=== PATIENT | female | born 1940 | race Caucasian/White ===

== ENCOUNTER → 2016-06-21 | Outpatient (CLI) | payer MEDICARE, BC ==
[~2016-06-21] MED LIST: ALBUTEROL SULFAT3 ML IH; ALBUTEROL0.83 MG/ML; ASPIRIN 32325 MG/TAB PO; ASPIRIN E.C. 8181 MG PO; ATROVENT I0.2 MG/1 M IH; ATROVENT INHALE14 GM IH; BACTRIM DS 8001 TAB PO; BIAXIN 500MG T500 MG PO; BROVANA15 MCG/2 M IH; BUDESONIDE1 POW; BUFFERED ASPIR325 MG PO; CAPOTEN 25MG25 MG PO; CARAFATE1 GM PO; CARDIZEM 60MG T60 MG PO; CARDIZEM CD 18180 MG PO; CARDIZEM60 MG PO; CETIRIZINE10 MG PO; CHLORASEPTIC 1180 M3 MM; CIPRO 500MG TA500 MG PO; CLEOCIN HC150 MG/CAP PO; CLINDAMYCIN150 MG PO; COLACE 100100 MG/CAP PO; COZAAR 25MG25 MG/TAB PO; COZAAR 50MG50 MG/TAB PO; DILTIAZEM60 MG PO; DOXYCYCLINE 10100 MG PO; DULCOLAX S10 MG/SUPP RC; DUONEB 3 MG/3 ML3 ML IH; FLAGYL500 MG PO; FLONASE NASAL S16 GM NS; FLOVENT0.044 MG/A IH; FOLIC ACID 11 MG/TA1 PO; FORTAMET500 MG PO; GENTAMICIN; GENTAMICIN NS; GENTAMICIN180 MG/501 NS; GENTAMICIN180 MG/502 NS; GLUCOPHAGE XR500 M1 PO; GLUCOPHAGE500 MG/TAB PO; HEPARIN LOCK FLU5 M1 IV; IPRATROPIUM BROM3 M1 IH; KLONOPIN 0.5MG0.5 MG PO; LANTUS100 U/ML; LANTUS100 U/ML SC; LANTUS100 U/ML SQ; LEVAQUIN 5500 MG/TA1 PO; LEVAQUIN 750MG750 M1 PO; LEVEMIR100 U/ML SQ; LEVOTHYROXIN0.075 MG PO; LEVOTHYROXINE0.1 MG PO; LEVOXYL0.075 MG PO; MAG-OX 400400 MG/TAB PO; METFORMIN500 MG PO; MIRALAX PA17 GM/Dose PO; MUCINEX 60600 MG/TA1 PO; MUCINEX600 M1 PO; NATURAL IRON65 MG PO; NEXIUM 40MG40 MG PO; NIACIN TIME RE500 MG PO; NIACIN500 M3 PO; NIACINOL500 MG PO; NIASPAN 500MG500 MG PO; NITROSTAT0.4 MG/TAB SL; NOVLOG SQ; NS INT FLUSH 1010 ML IV; NYSTATIN OR100 MU/ML PO; PEPCID 20MG TAB20 MG PO; PLAVIX 75MG TAB75 MG PO; POTASS CHL20 MEQ/15 PO; PREDNISONE 10MG10 MG PO; PREDNISONE10 MG PO; PREDNISONE20 MG PO; PRILOSEC 20MG20 MG PO; PROTONIX 40MG T40 MG PO; PROVENTIL0.09 MG/A1 IH; PULMICORT0.25 MG/2 IH; PULMICORT0.5 MG/2 M IH; RT SPIRIVA18 MCG IH; SALINE NASAL SP45 ML NS; SENOKOT S 50 MG1 TAB PO; SINGULAIR 110 MG/TAB PO; SINGULAIR10 MG PO; SSKI1 GM/ML PO; SYNTHROID0.075 MG PO; SYNTHROID0.075 MG/T PO; SYNTHROID0.1 MG PO; THEOPHYLLINE E PO; THEOPHYLLINE S300 M1 PO; THEOPHYLLINE300 MG PO; ULTRAM 50MG TAB50 MG PO; VITAMIN B-1000 MCG/T PO; VITAMIN C500 MG PO; VITAMIN D 50,1.25 MG PO; VITAMIN D5000 IU PO; VITAMIN D50000 I1 PO; Viscous Lidocaine; ZOFRAN ODT4 MG PO; ZYRTEC 10MG10 MG PO; ZYRTEC10 MG PO; [UNRECOGNIZED DRUG - CODE] PO; [UNRECOGNIZED DRUG - OTHER]
== END ==
LOC: SUN.DIA 11:45
DX: E11.65 Type 2 diabetes mellitus with hyperglycemia (principal); Z79.84 Long term (current) use of oral hypoglycemic drugs; Z68.22 Body mass index [BMI] 22.0-22.9, adult; Z71.3 Dietary counseling and surveillance; E78.5 Hyperlipidemia, unspecified; I10 Essential (primary) hypertension

== ENCOUNTER → 2016-07-22 | Outpatient (CLI) | payer MEDICARE, BC | LOC: COL.RAD 07-21 08:45 | DX: Z53.9 Procedure and treatment not carried out, unspecified reason (principal) ==

== ENCOUNTER → 2016-07-26 | Outpatient (CLI) | payer MEDICARE, BC | LOC: COL.RAD 08:55 | DX: R10.84 Generalized abdominal pain (principal); R11.0 Nausea; R06.02 Shortness of breath | CPT/HCPCS: A9541 ==

== ENCOUNTER 2016-08-23 07:50 | Day surgery (SDC) | payer MEDICARE, BC ==
[2009-05-26 03:04] VITALS: BP 149/73
[~2016-08-23] VITALS: Ht 165.1 cm; Wt 64.5 kg
[2016-08-23] MEDS ORDERED: ZYRTEC 10MG10 MG PO (08:20)
[2016-08-23] MEDS ORDERED: LEVEMIR100 U/ML SQ (08:21)
[2016-08-23] MEDS ORDERED: GLUCOPHAGE500 MG/TAB PO (08:24)
[2016-08-23] MEDS ORDERED: SYNTHROID0.075 MG/T PO (08:25)
[2016-08-23] MEDS ORDERED: MIRALAX PA17 GM/Dose PO (08:28)
[2016-08-23 08:38] VITALS: BP 136/61; PULSE 86; TEMP 98
[2016-08-23 09:10] VITALS: BP 129/58; PULSE 81; TEMP 98.5
[2016-08-23 09:25] VITALS: BP 122/64; PULSE 82
[2016-08-23 09:40] VITALS: BP 140/58; PULSE 81
[2016-08-23 09:55] VITALS: BP 135/62; PULSE 76
== END 2016-08-23 10:14 | disposition home or self-care (01) ==
LOC: SDCO 07:50
DX: K31.819 Angiodysplasia of stomach and duodenum without bleeding (principal); K29.30 Chronic superficial gastritis without bleeding
CPT/HCPCS: OP; J2704; J7030

== ENCOUNTER → 2016-10-18 | Outpatient (CLI) | payer MEDICARE, BC | LOC: SUN.DIA | DX: E11.65 Type 2 diabetes mellitus with hyperglycemia (principal); Z68.23 Body mass index [BMI] 23.0-23.9, adult; Z71.3 Dietary counseling and surveillance; E78.5 Hyperlipidemia, unspecified; I10 Essential (primary) hypertension; Z87.891 Personal history of nicotine dependence; E03.9 Hypothyroidism, unspecified; J44.9 Chronic obstructive pulmonary disease, unspecified; K21.9 Gastro-esophageal reflux disease without esophagitis; M81.0 Age-related osteoporosis without current pathological fracture ==

== ENCOUNTER → 2017-01-18 | Outpatient (CLI) | payer MEDICARE, BC, OTHER | LOC: SUN.DIA 11:41 | DX: E11.9 Type 2 diabetes mellitus without complications (principal); E78.5 Hyperlipidemia, unspecified; I10 Essential (primary) hypertension; Z68.23 Body mass index [BMI] 23.0-23.9, adult; Z71.3 Dietary counseling and surveillance; Z87.891 Personal history of nicotine dependence | CPT/HCPCS: G0108 ==

== ENCOUNTER → 2017-01-24 | Outpatient (CLI) | payer MEDICARE, BC, OTHER | LOC: SUN.DIA 12:49 | DX: E11.9 Type 2 diabetes mellitus without complications (principal); Z71.3 Dietary counseling and surveillance ==

== ENCOUNTER → 2017-03-22 | Outpatient (CLI) | payer MEDICARE, BC, OTHER | LOC: SUN.DIA 10:59 | DX: E11.9 Type 2 diabetes mellitus without complications (principal); E78.5 Hyperlipidemia, unspecified; I10 Essential (primary) hypertension; Z68.23 Body mass index [BMI] 23.0-23.9, adult; Z71.3 Dietary counseling and surveillance; Z87.891 Personal history of nicotine dependence | CPT/HCPCS: G0108 ==

== ENCOUNTER → 2017-07-21 | Outpatient (CLI) | payer MEDICARE, BC | LOC: COL.VAS 12:29 | DX: I05.8 Other rheumatic mitral valve diseases (principal) ==

== ENCOUNTER 2017-10-03 11:20 | Inpatient (IN) | payer MEDICARE, BC ==
[~2017-10-03] VITALS: Ht 165.1 cm; Wt 65.3 kg
[2017-10-03 11:47] VITALS: BP 104/69; PULSE 107; TEMP 99.1
[2017-10-03 13:03] LABS: BASO # 0.1 (0.0-0.2); BASO % 0.5 % (0.0-2.0); EOS % 0.2 % (0-4.0); GRAN # 16.8 (1.4-6.5); GRAN % 86.8 % (42.2-75.2); LYMPH # 1.1 (1.2-3.4); LYMPH % 5.5 % (20.0-51.0); MEAN CELL VOLUME 91 fl (80.0-100.0); MEAN CORPUSCULAR HGB CONC 33 g/dl (33.0-37.0); MONO # 1.2 (0.1-0.6); MONO % 6.2 % (1.7-9.3); PLATELET COUNT 390 K/mm3 (130-400); RED BLOOD COUNT 3.82 M/mm3 (4.10-5.30); REDCELL DISTRIBUTION WIDTH-CV 13.2 % (11.5-14.5)
[2017-10-03 13:04] LABS: HEMATOCRIT 34.6 % (37.0-47.0); HEMOGLOBIN 11.5 g/dl (12.5-16.0); MEAN CORPUSCULAR HEMOGLOBIN 30 pg (27.0-31.0)
[2017-10-03 13:15] LABS: ALBUMIN 3.8 gm/dL (3.5-5.0); BILIRUBIN,TOTAL 0.5 mg/dL (0.0-1.0); CALCIUM 9.2 mg/dL (8.4-10.2); CREATININE, serum 0.62 mg/dL (0.52-1.25); POTASSIUM 4.3 mmol/L (3.4-5.0); TOTAL PROTEIN 6.6 gm/dL (6.4-8.2)
[2017-10-03 16:10] VITALS: BP 139/46; PULSE 114; TEMP 99.3
[2017-10-03] MEDS ORDERED: GLUCOPHAGE500 MG/TAB PO (18:14)
[2017-10-03 19:52] VITALS: BP 131/55; PULSE 117; TEMP 98.5
[2017-10-03 23:46] VITALS: BP 144/52; PULSE 107; TEMP 98.2
[2017-10-04 03:54] VITALS: BP 138/58; PULSE 96; TEMP 97.8
[2017-10-04 06:07] LABS: MEAN CELL VOLUME 92 fl (80.0-100.0); MEAN CORPUSCULAR HGB CONC 33 g/dl (33.0-37.0); PLATELET COUNT 328 K/mm3 (130-400); RED BLOOD COUNT 3.55 M/mm3 (4.10-5.30); REDCELL DISTRIBUTION WIDTH-CV 13.2 % (11.5-14.5)
[2017-10-04 06:10] LABS: COLLECTION METHOD CLEAN CATCH
[2017-10-04 06:14] LABS: HEMATOCRIT 32.7 % (37.0-47.0); HEMOGLOBIN 10.9 g/dl (12.5-16.0); MEAN CORPUSCULAR HEMOGLOBIN 31 pg (27.0-31.0)
[2017-10-04 06:18] LABS: CREATININE, serum 0.48 mg/dL (0.52-1.25); MAGNESIUM 2.2 mg/dL (1.6-2.3); POTASSIUM 3.9 mmol/L (3.4-5.0)
[2017-10-04 06:22] LABS: AMORPHOUS CRYSTAL Present /uL; PH 7 (5-8); SQUAMOUS EPITHELIAL 0-2 /hpf; URINE APPEARANCE Clear; URINE BACTERIA None Seen /hpf; URINE BILIRUBIN Negative (NEGATIVE); URINE BLOOD 1+ (NEGATIVE); URINE COLOR Yellow; URINE GLUCOSE 3+ (NEGATIVE); URINE KETONE Trace (NEGATIVE); URINE LEUKOCYTE ESTERASE Trace (NEGATIVE); URINE NITRATE Negative (NEGATIVE); URINE PROTEIN(semi-quant) 1+ (NEGATIVE); URINE RBC None Seen /hpf; URINE UROBILINOGEN Negative (NEGATIVE)
[2017-10-04 07:48] LABS: BAND 1 % (0-10); LYMPHOCYTE 5 % (20.0-51.0); NEUTROPHILS 93 % (42.0-75.2); TOXIC GRANULATION PRESENT
[2017-10-04 07:49] LABS: PLATELET ESTIMATE NORMAL (NORMAL)
[2017-10-04 07:53] VITALS: BP 135/59; PULSE 93; TEMP 98.5
[2017-10-04 11:59] VITALS: BP 147/58; PULSE 89; TEMP 98.5
[2017-10-04 16:13] VITALS: BP 136/64; PULSE 110; TEMP 98.2
[2017-10-04 20:04] VITALS: BP 165/60; PULSE 124; TEMP 98.2
[2017-10-04 23:45] VITALS: BP 131/51; PULSE 119; TEMP 98
[2017-10-05 03:04] VITALS: BP 147/64; PULSE 110; TEMP 97.1
[2017-10-05 06:37] LABS: MEAN CELL VOLUME 92 fl (80.0-100.0); MEAN CORPUSCULAR HGB CONC 33 g/dl (33.0-37.0); MEAN PLATELET VOLUME 9.3 fl (7.4-10.4); PLATELET COUNT 359 K/mm3 (130-400); RED BLOOD COUNT 3.35 M/mm3 (4.10-5.30); REDCELL DISTRIBUTION WIDTH-CV 13.3 % (11.5-14.5)
[2017-10-05 06:38] LABS: HEMATOCRIT 30.9 % (37.0-47.0); HEMOGLOBIN 10.2 g/dl (12.5-16.0); MEAN CORPUSCULAR HEMOGLOBIN 30 pg (27.0-31.0)
[2017-10-05 06:48] LABS: CREATININE, serum 0.55 mg/dL (0.52-1.25); POTASSIUM 4.2 mmol/L (3.4-5.0)
[2017-10-05 07:31] LABS: BAND 9 % (0-10); LYMPHOCYTE 4 % (20.0-51.0); NEUTROPHILS 78 % (42.0-75.2); PLATELET ESTIMATE NORMAL (NORMAL)
[2017-10-05 08:45] VITALS: BP 175/66; PULSE 96; TEMP 97.9
[2017-10-05 12:15] VITALS: BP 150/51; PULSE 107; TEMP 98.4
[2017-10-05 16:06] VITALS: BP 152/69; PULSE 101; TEMP 98.5
[2017-10-05 20:35] VITALS: BP 145/54; PULSE 103; TEMP 97.9
[2017-10-06 00:27] VITALS: BP 113/49; PULSE 90; TEMP 98.1
[2017-10-06 04:14] VITALS: BP 135/57; PULSE 83; TEMP 98.2
[2017-10-06 06:29] LABS: BASO % 0.2 % (0.0-2.0); EOS # 0.1 (0.0-0.7); EOS % 0.9 % (0-4.0); GRAN # 10.6 (1.4-6.5); GRAN % 76.4 % (42.2-75.2); LYMPH # 1.7 (1.2-3.4); LYMPH % 12.4 % (20.0-51.0); MEAN CELL VOLUME 93 fl (80.0-100.0); MEAN CORPUSCULAR HGB CONC 32 g/dl (33.0-37.0); MEAN PLATELET VOLUME 8.9 fl (7.4-10.4); MONO # 1.2 (0.1-0.6); MONO % 8.7 % (1.7-9.3); PLATELET COUNT 400 K/mm3 (130-400); RED BLOOD COUNT 3.62 M/mm3 (4.10-5.30); REDCELL DISTRIBUTION WIDTH-CV 13.2 % (11.5-14.5)
[2017-10-06 06:45] LABS: ALBUMIN 3.4 gm/dL (3.5-5.0); BILIRUBIN,TOTAL 0.1 mg/dL (0.0-1.0); CALCIUM 9.1 mg/dL (8.4-10.2); CREATININE, serum 0.62 mg/dL (0.52-1.25); POTASSIUM 3.8 mmol/L (3.4-5.0); TOTAL PROTEIN 6.3 gm/dL (6.4-8.2)
[2017-10-06 06:53] LABS: HEMATOCRIT 33.7 % (37.0-47.0); HEMOGLOBIN 10.9 g/dl (12.5-16.0); MEAN CORPUSCULAR HEMOGLOBIN 30 pg (27.0-31.0)
[2017-10-06 07:27] VITALS: BP 144/56; PULSE 102; TEMP 98.3
[2017-10-06] MEDS ORDERED: ZYRTEC 10MG10 MG PO (09:26)
[2017-10-06] MEDS ORDERED: DOXYCYCLINE 10100 MG PO (09:26)
[2017-10-06] MEDS ORDERED: DEEP SEA 45 ML45 ML NS (09:27)
[2017-10-06] MEDS ORDERED: PREDNISONE10 MG PO (09:29)
[2017-10-06 09:55] VITALS: BP_SYST 6.03; PULSE 95
[2017-10-06] MEDS ORDERED: MONODOX100 PO (12:29)
[2017-10-06] MEDS ORDERED: INCRUSE EL62.5 MCG/A IH (14:02)
[2017-10-06] MEDS ORDERED: PROTONIX 40MG T40 MG PO (14:04)
[2017-10-06] MEDS ORDERED: LOVENOX 4040 MG/0.4 SQ (14:05)
[2017-10-06] MEDS ORDERED: PERFOROMIS20 MCG/2 M IH (14:11)
[2017-10-06] MEDS ORDERED: NOVLOG SQ (14:12)
[2017-10-06] MEDS ORDERED: VITAMIN D 50,1.25 MG PO (14:14)
[2017-10-06] MEDS ORDERED: IPRATROPIUM BROM3 M1 IH (14:16)
== END 2017-10-06 10:50 | DRG 192 ==
LOC: MEDICAL 11:20
PROVIDERS: Physician Assistant
DX: J44.1 Chronic obstructive pulmonary disease with (acute) exacerbation (principal); I10 Essential (primary) hypertension; I25.10 Atherosclerotic heart disease of native coronary artery without angina pectoris; E11.42 Type 2 diabetes mellitus with diabetic polyneuropathy; Z79.4 Long term (current) use of insulin; Z87.891 Personal history of nicotine dependence; R91.1 Solitary pulmonary nodule; K76.9 Liver disease, unspecified; J32.9 Chronic sinusitis, unspecified
CPT/HCPCS: OP; 99222; 99223-AI; 99232-AI; 99238; G0378; G0379; G8978-GP; G8979-GP; G8987-GO; G8988-GO; J1650; J1815; J1956; J2920; J3475; J7030; J7512; Q9967

== ENCOUNTER 2017-10-06 10:59 | Inpatient (IN) | payer MEDICARE, BC ==
[~2017-10-06] VITALS: Ht 167.6 cm; Wt 68.3 kg
[~2017-10-06 10:59] MED LIST changes: +DEEP SEA 45 ML45 ML NS
[2017-10-06] MEDS ORDERED: MONODOX100 PO (12:29)
[2017-10-06 13:46] VITALS: BP 155/64; PULSE 95; TEMP 97.9
[2017-10-06] MEDS ORDERED: INCRUSE EL62.5 MCG/A IH (14:02)
[2017-10-06] MEDS ORDERED: PROTONIX 40MG T40 MG PO (14:04)
[2017-10-06] MEDS ORDERED: LOVENOX 4040 MG/0.4 SQ (14:05)
[2017-10-06] MEDS ORDERED: PERFOROMIS20 MCG/2 M IH (14:11)
[2017-10-06] MEDS ORDERED: NOVLOG SQ (14:12)
[2017-10-06] MEDS ORDERED: VITAMIN D 50,1.25 MG PO (14:14)
[2017-10-06] MEDS ORDERED: IPRATROPIUM BROM3 M1 IH (14:16)
[2017-10-06 18:25] VITALS: BP 146/59; PULSE 92; TEMP 97.8
[2017-10-07 06:46] VITALS: BP 152/75; PULSE 96; TEMP 98.2
[2017-10-07 16:14] VITALS: BP 161/65; PULSE 104; TEMP 98.4
[2017-10-08 06:00] VITALS: BP 152/63; PULSE 97; TEMP 98.3
[2017-10-08 16:29] VITALS: BP 148/62; PULSE 103; TEMP 98
[2017-10-09 06:54] VITALS: BP 150/98; PULSE 93; TEMP 98.2
[2017-10-09 16:01] VITALS: BP 140/55; PULSE 70; TEMP 98
[2017-10-10 05:27] VITALS: BP 135/52; PULSE 90; TEMP 98.3
[2017-10-10 16:16] VITALS: BP 130/60; PULSE 99; TEMP 97.7
[2017-10-11 06:00] VITALS: BP 140/48; PULSE 93; TEMP 98.3
[2017-10-11 15:37] VITALS: BP 132/53; PULSE 90; TEMP 97.9
[2017-10-12 04:58] VITALS: BP 135/60; PULSE 84; TEMP 97.7
[2017-10-12 07:00] LABS: CALCIUM 9.3 mg/dL (8.4-10.2); CREATININE, serum 0.58 mg/dL (0.52-1.25); MAGNESIUM 1.9 mg/dL (1.6-2.3); POTASSIUM 4.1 mmol/L (3.4-5.0)
[2017-10-12 07:25] LABS: TSH w REFLEX 5.95 uIU/mL (0.465-4.680)
[2017-10-12 15:34] VITALS: BP 140/52; PULSE 85; TEMP 97.6
[2017-10-13 06:06] VITALS: BP 155/63; PULSE 94; TEMP 97.4
[2017-10-13 16:19] VITALS: BP 126/52; PULSE 95; TEMP 98
[2017-10-14 06:05] VITALS: BP 133/52; PULSE 88; TEMP 98.4
[2017-10-14] MEDS ORDERED: PREDNISONE20 MG PO (08:48)
[2017-10-14] MEDS ORDERED: PROAIR HFA0.09 MG/AC IH (08:48)
[2017-10-14] MEDS ORDERED: LEVOXYL0.088 MG PO (08:48)
== END 2017-10-14 13:00 | disposition home health service (06) | DRG 948 ==
PROVIDERS: Internal Medicine
DX: R53.81 Other malaise (principal); J44.1 Chronic obstructive pulmonary disease with (acute) exacerbation; I25.10 Atherosclerotic heart disease of native coronary artery without angina pectoris; I10 Essential (primary) hypertension; E11.42 Type 2 diabetes mellitus with diabetic polyneuropathy; F17.210 Nicotine dependence, cigarettes, uncomplicated; R13.19 Other dysphagia
CPT/HCPCS: 99222-AI; 99232-AI; 99239; J1650; J1815; J7512

== ENCOUNTER 2017-10-19 15:41 | Emergency (ER) | payer MEDICARE, BC ==
[2009-05-26 03:04] VITALS: BP 149/73
[~2017-10-19] VITALS: Ht 165.1 cm; Wt 68.2 kg
[~2017-10-19 15:41] MED LIST changes: +INCRUSE EL62.5 MCG/A IH; +LEVOXYL0.088 MG PO; +LOVENOX 4040 MG/0.4 SQ; +MONODOX100 PO; +PERFOROMIS20 MCG/2 M IH; +PROAIR HFA0.09 MG/AC IH
[2017-10-19 16:31] LABS: HEMOGLOBIN 11.5 g/dl (12.5-16.0); MEAN CELL VOLUME 93 fl (80.0-100.0); MEAN CORPUSCULAR HEMOGLOBIN 31 pg (27.0-31.0); MEAN CORPUSCULAR HGB CONC 33 g/dl (33.0-37.0); MEAN PLATELET VOLUME 8.7 fl (7.4-10.4); PLATELET COUNT 559 K/mm3 (130-400); RED BLOOD COUNT 3.77 M/mm3 (4.10-5.30); REDCELL DISTRIBUTION WIDTH-CV 14.1 % (11.5-14.5)
[2017-10-19 16:34] LABS: HEMATOCRIT 35.2 % (37.0-47.0)
[2017-10-19 16:38] VITALS: TEMP 97.2
[2017-10-19 16:40] LABS: ALBUMIN 4.3 gm/dL (3.5-5.0); BILIRUBIN,TOTAL 0.3 mg/dL (0.0-1.0); CALCIUM 9.9 mg/dL (8.4-10.2); CREATININE, serum 0.64 mg/dL (0.52-1.25); POTASSIUM 4.8 mmol/L (3.4-5.0); TOTAL PROTEIN 7.2 gm/dL (6.4-8.2)
[2017-10-19 17:06] LABS: BAND 24 % (0-10); BASOPHIL 1 % (0-2); LYMPHOCYTE 4 % (20.0-51.0); METAMYELOCYTE 3 % (0-0); NEUTROPHILS 67 % (42.0-75.2); PLATELET ESTIMATE INCREASED (NORMAL)
[2017-10-19] MEDS ORDERED: VALIUM 2MG T2 MG/TAB PO (17:14)
[2017-10-19 17:29] LABS: COLLECTION METHOD CLEAN CATCH
[2017-10-19 17:42] VITALS: BP 158/66; PULSE 98
[2017-10-19 17:44] LABS: MUCOUS Present /lpf; PH 5 (5-8); SQUAMOUS EPITHELIAL 0-2 /hpf; URINE APPEARANCE Clear; URINE BACTERIA None Seen /hpf; URINE BILIRUBIN Negative (NEGATIVE); URINE BLOOD Negative (NEGATIVE); URINE COLOR Yellow; URINE GLUCOSE Negative (NEGATIVE); URINE KETONE Negative (NEGATIVE); URINE LEUKOCYTE ESTERASE Negative (NEGATIVE); URINE NITRATE Negative (NEGATIVE); URINE PROTEIN(semi-quant) Negative (NEGATIVE); URINE UROBILINOGEN Negative (NEGATIVE)
[2017-10-19 18:07] LABS: ARTERIAL BLOOD GAS HCO3 22.1 meq/L (22-26); ARTERIAL BLOOD GAS PCO2 36.5 mmHg (35-45); ARTERIAL BLOOD GAS PO2 99.7 mmHg (80-100)
[2017-10-19 18:08] LABS: ARTERIAL BLD GAS O2 SATURATION 97.2 % (92-100); ARTERIAL BLD GAS TCO2 CT 23.2; ARTERIAL BLOOD GAS BASE EXCESS -2.3 (-2-2)
== END 2017-10-19 18:09 | disposition home or self-care (01) ==
LOC: COL.ER 15:41
PROVIDERS: Emergency Medicine
DX: R25.1 Tremor, unspecified (principal); J44.9 Chronic obstructive pulmonary disease, unspecified; Z87.09 Personal history of other diseases of the respiratory system; Z79.82 Long term (current) use of aspirin; Z79.02 Long term (current) use of antithrombotics/antiplatelets; Z79.4 Long term (current) use of insulin; Z79.51 Long term (current) use of inhaled steroids
CPT/HCPCS: J2060; J7030

== ENCOUNTER 2017-11-18 17:22 | Outpatient (CLI) | payer MEDICARE, BC ==
[2009-05-26 03:04] VITALS: BP 149/73
[~2017-11-18] VITALS: Ht 165.1 cm; Wt 95.5 kg
[~2017-11-18 17:22] MED LIST changes: +VALIUM 2MG T2 MG/TAB PO
[2017-11-18 17:43] LABS: HEMOGLOBIN 10.8 g/dl (12.5-16.0); MEAN CELL VOLUME 97 fl (80.0-100.0); MEAN CORPUSCULAR HEMOGLOBIN 30 pg (27.0-31.0); MEAN CORPUSCULAR HGB CONC 31 g/dl (33.0-37.0); PLATELET COUNT 469 K/mm3 (130-400); RED BLOOD COUNT 3.56 M/mm3 (4.10-5.30); REDCELL DISTRIBUTION WIDTH-CV 13.8 % (11.5-14.5)
[2017-11-18 17:44] LABS: HEMATOCRIT 34.6 % (37.0-47.0)
[2017-11-18 17:49] LABS: ARTERIAL BLD GAS O2 SATURATION 96.6 % (92-100); ARTERIAL BLD GAS TCO2 CT 25.4; ARTERIAL BLOOD GAS BASE EXCESS -0.9 (-2-2); ARTERIAL BLOOD GAS HCO3 24.1 meq/L (22-26); ARTERIAL BLOOD GAS PO2 92.1 mmHg (80-100); ARTERIAL BLOOD GAS pH 7.39 (7.35-7.45)
[2017-11-18 17:52] LABS: CALCIUM 9.4 mg/dL (8.4-10.2); CREATININE, serum 0.66 mg/dL (0.52-1.25); POTASSIUM 5.2 mmol/L (3.4-5.0)
[2017-11-18 18:12] LABS: COLLECTION METHOD CLEAN CATCH
[2017-11-18 18:24] VITALS: BP 140/57; PULSE 86; TEMP 98.2
[2017-11-18 18:27] LABS: MUCOUS Present /lpf; PH 5 (5-8); SQUAMOUS EPITHELIAL None Seen /hpf; URINE APPEARANCE Clear; URINE BACTERIA None Seen /hpf; URINE BILIRUBIN Negative (NEGATIVE); URINE BLOOD Negative (NEGATIVE); URINE COLOR Yellow; URINE GLUCOSE 3+ (NEGATIVE); URINE KETONE Trace (NEGATIVE); URINE LEUKOCYTE ESTERASE Negative (NEGATIVE); URINE NITRATE Negative (NEGATIVE); URINE PROTEIN(semi-quant) Negative (NEGATIVE); URINE RBC 0-2 /hpf; URINE UROBILINOGEN Negative (NEGATIVE); URINE WBC 0-2 /hpf
[2017-11-18] MEDS ORDERED: NOVLOG SQ (23:34)
== END 2017-11-18 18:32 | disposition other institution, planned readmission (95) ==
LOC: EUO 17:22
PROVIDERS: Internal Medicine
DX: J96.10 Chronic respiratory failure, unspecified whether with hypoxia or hypercapnia (principal); J44.9 Chronic obstructive pulmonary disease, unspecified; Z99.81 Dependence on supplemental oxygen

== ENCOUNTER 2017-11-18 18:25 | Inpatient (IN) | payer MEDICARE, BC ==
[~2017-11-18] VITALS: Ht 167.6 cm; Wt 69.7 kg
[2017-11-18 22:54] VITALS: BP 119/40; PULSE 87; TEMP 98.3
[2017-11-18] MEDS ORDERED: NOVLOG SQ (23:34)
[2017-11-19 05:19] VITALS: BP 144/72; PULSE 83; TEMP 98.1
[2017-11-19 08:09] LABS: HEMOGLOBIN 10.3 g/dl (12.5-16.0); MEAN CELL VOLUME 98 fl (80.0-100.0); MEAN CORPUSCULAR HEMOGLOBIN 30 pg (27.0-31.0); MEAN CORPUSCULAR HGB CONC 31 g/dl (33.0-37.0); RED BLOOD COUNT 3.39 M/mm3 (4.10-5.30)
[2017-11-19 08:15] LABS: HEMATOCRIT 33.2 % (37.0-47.0); PLATELET COUNT 361 K/mm3 (130-400)
[2017-11-19 08:22] LABS: ANION GAP 8 mmol/L (7-16); BLOOD UREA NITROGEN 12 mg/dL (7-17); CALCIUM 8.5 mg/dL (8.4-10.2); CARBON DIOXIDE 32 mmol/L (22-30); CHLORIDE 101 mmol/L (98-107); CREATININE, serum 0.57 mg/dL (0.52-1.25); GLUCOSE 93 mg/dL (74-106); POTASSIUM 4.3 mmol/L (3.4-5.0); SODIUM 141 mmol/L (137-145)
[2017-11-19 08:25] VITALS: BP 153/54; PULSE 95; TEMP 98.3
[2017-11-19 08:55] LABS: TROPONIN-I < 0.012 ng/mL (0.000-0.034)
[2017-11-19 09:33] LABS: BAND 7 % (0-10); EOSINOPHIL 1 % (0-4); LYMPHOCYTE 32 % (20.0-51.0); NEUTROPHILS 58 % (42.0-75.2)
[2017-11-19 09:36] LABS: PLATELET ESTIMATE NORMAL (NORMAL)
[2017-11-19 12:00] VITALS: BP 134/52; PULSE 100; TEMP 98.5
[2017-11-19 17:36] VITALS: BP 127/51; PULSE 105; TEMP 98.6
[2017-11-19 20:49] VITALS: BP 141/56; PULSE 52; TEMP 98.1
[2017-11-20] VITALS (7 sets, daily range): BP systolic 109–150; BP diastolic 43–66; PULSE 60–95; TEMP 98.1–98.6
[2017-11-20 07:00] LABS: BILIRUBIN,TOTAL 0.3 mg/dL (0.0-1.0); CALCIUM 8.8 mg/dL (8.4-10.2); CREATININE, serum 0.57 mg/dL (0.52-1.25); POTASSIUM 4.1 mmol/L (3.4-5.0); TOTAL PROTEIN 5.4 gm/dL (6.4-8.2)
[2017-11-21 04:54] VITALS: BP 135/53; PULSE 86; TEMP 98.1
[2017-11-21 07:43] VITALS: BP 130/44; PULSE 88; TEMP 97.7
[2017-11-21 11:17] VITALS: BP 114/41; PULSE 77; TEMP 98.1
[2017-11-21 16:02] VITALS: BP 128/47; PULSE 87; TEMP 97.9
[2017-11-21 19:32] VITALS: BP 131/42; PULSE 90; TEMP 98.2
[2017-11-22 00:20] VITALS: BP 102/48; PULSE 77; TEMP 98.1
[2017-11-22 04:26] VITALS: BP 117/51; PULSE 81; TEMP 98.5
[2017-11-22 08:02] LABS: HEMATOCRIT 34.4 % (37.0-47.0); HEMOGLOBIN 11.3 g/dl (12.5-16.0); MEAN CELL VOLUME 94 fl (80.0-100.0); MEAN CORPUSCULAR HEMOGLOBIN 31 pg (27.0-31.0); MEAN CORPUSCULAR HGB CONC 33 g/dl (33.0-37.0); PLATELET COUNT 362 K/mm3 (130-400); RED BLOOD COUNT 3.68 M/mm3 (4.10-5.30); REDCELL DISTRIBUTION WIDTH-CV 14.1 % (11.5-14.5)
[2017-11-22 08:04] VITALS: BP 125/43; PULSE 85; TEMP 98.1
[2017-11-22 08:13] LABS: CALCIUM 8.7 mg/dL (8.4-10.2); CREATININE, serum 0.56 mg/dL (0.52-1.25); POTASSIUM 4.1 mmol/L (3.4-5.0)
[2017-11-22 08:15] LABS: BAND 17 % (0-10); EOSINOPHIL 3 % (0-4); HYPOCHROMIA 1+; LYMPHOCYTE 27 % (20.0-51.0); NEUTROPHILS 50 % (42.0-75.2); PLATELET ESTIMATE NORMAL (NORMAL)
== END 2017-11-22 12:00 | disposition home or self-care (01) | DRG 101 ==
LOC: COL.ER 18:25 → JCC 20:26
PROVIDERS: Family Medicine; Nurse Practitioner; Psychiatry & Neurology Neurology
DX: R56.9 Unspecified convulsions (principal); R51 Headache; R07.9 Chest pain, unspecified; J44.9 Chronic obstructive pulmonary disease, unspecified; I10 Essential (primary) hypertension; R91.8 Other nonspecific abnormal finding of lung field; E11.42 Type 2 diabetes mellitus with diabetic polyneuropathy; M81.0 Age-related osteoporosis without current pathological fracture; E03.9 Hypothyroidism, unspecified; R13.10 Dysphagia, unspecified; I25.10 Atherosclerotic heart disease of native coronary artery without angina pectoris; M19.90 Unspecified osteoarthritis, unspecified site; I48.91 Unspecified atrial fibrillation; D64.9 Anemia, unspecified; I25.2 Old myocardial infarction; Z99.81 Dependence on supplemental oxygen; Z87.891 Personal history of nicotine dependence
CPT/HCPCS: 99222-AI; 99232-AI; 99239; A9585; G0378; J1650; J1815; J1953; J2060; J2405; J7030

== ENCOUNTER → 2018-02-24 | Outpatient (CLI) | payer MEDICARE, BC | LOC: COL.RAD 17:02 | DX: S09.90XA Unspecified injury of head, initial encounter (principal); W19.XXXA Unspecified fall, initial encounter ==

== ENCOUNTER 2018-05-31 14:45 | Outpatient (RCR) | payer MEDICARE, BC | END 2018-06-01 09:58 | disposition home or self-care (01) | LOC: MKS.ESL.PT 14:45 | DX: R29.898 Other symptoms and signs involving the musculoskeletal system (principal); R53.81 Other malaise | CPT/HCPCS: G8978-GP; G8979-GP ==

== ENCOUNTER 2019-03-16 15:56 | Inpatient (IN) | payer MEDICARE, BC ==
[~2019-03-16] VITALS: Ht 167.6 cm; Wt 69.0 kg
[~2019-03-16 15:56] MED LIST changes: +XANAX .25M0.25 MG/TA PO
[2019-03-16 16:43] LABS: BASO # 0.1 (0.0-0.2); BASO % 0.7 % (0.0-2.0); EOS # 0.6 (0.0-0.7); EOS % 6.8 % (0-4.0); GRAN # 5.9 (1.4-6.5); GRAN % 68.3 % (42.2-75.2); HEMATOCRIT 34.9 % (37.0-47.0); HEMOGLOBIN 11.9 g/dl (12.5-16.0); LYMPH # 1.3 (1.2-3.4); LYMPH % 14.6 % (20.0-51.0); MEAN CELL VOLUME 93 fl (80.0-100.0); MEAN CORPUSCULAR HEMOGLOBIN 32 pg (27.0-31.0); MEAN CORPUSCULAR HGB CONC 34 g/dl (33.0-37.0); MEAN PLATELET VOLUME 8.8 fl (7.4-10.4); MONO # 0.7 (0.1-0.6); MONO % 8.4 % (1.7-9.3); PLATELET COUNT 315 K/mm3 (130-400); RED BLOOD COUNT 3.76 M/mm3 (4.10-5.30); REDCELL DISTRIBUTION WIDTH-CV 12.6 % (11.5-14.5)
[2019-03-16 16:47] LABS: INR 0.9 (0.8-3.0); PROTHROMBIN TIME 10.1 SECONDS (9.7-12.8)
[2019-03-16 16:51] LABS: ALBUMIN 3.5 gm/dL (3.5-5.0); BILIRUBIN,TOTAL 0.3 mg/dL (0.0-1.0); CALCIUM 9.4 mg/dL (8.4-10.2); CREATININE, serum 0.45 (0.52-1.25); POTASSIUM 4.2 mmol/L (3.4-5.0); TOTAL PROTEIN 6.2 gm/dL (6.4-8.2)
[2019-03-16 18:01] VITALS: BP 137/55; PULSE 76; TEMP 97.6
--- NOTE | 2019-03-16 19:52 | NUR ---
Patient has done well since up from ER to room 346. Contacted hospitalist for oral pain medication and clarified scheduled Morphine. Hanson catheter placed, draining clear yellow urine. Patient in 3lbs of bucks traction. Pain medication administered per orders. Denies further needs at this time. Reported off to oyster culler.
[2019-03-16 21:00] VITALS: BP 150/65; PULSE 90; TEMP 98
[2019-03-17] VITALS (7 sets, daily range): BP systolic 111–160; BP diastolic 32–71; PULSE 74–88; TEMP 97.7–98.4
[2019-03-17 06:23] LABS: BASO % 0.3 % (0.0-2.0); EOS % 0.1 % (0-4.0); GRAN # 8.3 (1.4-6.5); GRAN % 86.7 % (42.2-75.2); HEMOGLOBIN 10.4 g/dl (12.5-16.0); LYMPH # 0.8 (1.2-3.4); LYMPH % 8.4 % (20.0-51.0); MEAN CELL VOLUME 95 fl (80.0-100.0); MEAN CORPUSCULAR HEMOGLOBIN 31 pg (27.0-31.0); MEAN CORPUSCULAR HGB CONC 33 g/dl (33.0-37.0); MEAN PLATELET VOLUME 9.2 fl (7.4-10.4); MONO # 0.4 (0.1-0.6); MONO % 3.8 % (1.7-9.3); PLATELET COUNT 275 K/mm3 (130-400); RED BLOOD COUNT 3.33 M/mm3 (4.10-5.30); REDCELL DISTRIBUTION WIDTH-CV 12.6 % (11.5-14.5)
[2019-03-17 06:28] LABS: CALCIUM 8.5 mg/dL (8.4-10.2); CREATININE, serum 0.49 (0.52-1.25); POTASSIUM 4.9 mmol/L (3.4-5.0)
[2019-03-17 06:32] LABS: HEMATOCRIT 31.5 % (37.0-47.0)
--- NOTE | 2019-03-17 08:00 | NUR ---
Patient in bed resting. Alert and oriented x 3. Shift assessment complete. Patient denies pain at this time. Hanson to dependent drainage with clear yellow urine present. Patient in bucks traction. Dr. Rincon, hospitalist, and Dr. Ramirez in to see patient. Denies further needs at this time.
[2019-03-17 09:50] LABS: ARTERIAL BLD GAS O2 SATURATION 97.2 % (92-100); ARTERIAL BLD GAS TCO2 CT 25.1; ARTERIAL BLOOD GAS BASE EXCESS -0.2 (-2-2); ARTERIAL BLOOD GAS HCO3 23.9 meq/L (22-26); ARTERIAL BLOOD GAS PCO2 37.2 mmHg (35-45); ARTERIAL BLOOD GAS PO2 89.5 mmHg (80-100); ARTERIAL BLOOD GAS pH 7.43 (7.35-7.45)
--- NOTE | 2019-03-17 15:03 | NUR ---
Plan Unknown, may go home but depends. SNF is a possibility also. SW met with patient about DC plan. Patient directed SW to speak with Denisha DTR or Karol . Patient shares that he resides with her DTR Karol. Denisha reports that the DPOA is shared between the siblings. Patient has interim home health services. Patient has 02 cont- 3Liters. SW will need to continue to follow for additonal information and plan.
--- NOTE | 2019-03-17 18:55 | NUR ---
Patient has done well throughout the day. Having increased pain this afternoon. Notified Dr. Yee for additional medication. Medications given per orders. Assisting patient for meals. Denies further needs at this time. Reported off to yeast tender.
--- NOTE | 2019-03-17 21:30 | NUR ---
Pt. laying in bed at this time. Pt. is A&OX3, assessment complete. INT to lt. forearm patent. Pt. needs assistance with eating supper. Helped pt. eat at this time. Lt. leg to murphy's traction. Pt. reports pain at a 3 when not moving. Hanson catheter to DD, clear yellow urine noted. Pt. denies further needs, call light within reach.
[2019-03-18] VITALS (13 sets, daily range): BP systolic 118–152; BP diastolic 46–76; PULSE 81–98; TEMP 97–98.5
[2019-03-18 06:27] LABS: BASO % 0.3 % (0.0-2.0); EOS % 0.2 % (0-4.0); GRAN # 10.3 (1.4-6.5); GRAN % 79.4 % (42.2-75.2); LYMPH # 1.3 (1.2-3.4); LYMPH % 10.1 % (20.0-51.0); MEAN CELL VOLUME 94 fl (80.0-100.0); MEAN CORPUSCULAR HGB CONC 33 g/dl (33.0-37.0); MEAN PLATELET VOLUME 9.2 fl (7.4-10.4); MONO # 1.2 (0.1-0.6); MONO % 9.2 % (1.7-9.3); PLATELET COUNT 268 K/mm3 (130-400); RED BLOOD COUNT 3.09 M/mm3 (4.10-5.30); REDCELL DISTRIBUTION WIDTH-CV 12.5 % (11.5-14.5)
[2019-03-18 06:29] LABS: HEMOGLOBIN 9.6 g/dl (12.5-16.0); MEAN CORPUSCULAR HEMOGLOBIN 31 pg (27.0-31.0)
[2019-03-18 06:36] LABS: CALCIUM 8.8 mg/dL (8.4-10.2); CREATININE, serum 0.58 (0.52-1.25); POTASSIUM 4.5 mmol/L (3.4-5.0)
--- NOTE | 2019-03-18 07:27 | NUR ---
REPORT RECEIVED FROM DUKE BARAJAS. PATIENT AWAKE, NPO, AWAITING SURGERY. CONSENT SIGNED. PATIENT IN TRACTION WITH 3 LB WEIGHT. CARE TAKEN OVER AT THIS TIME.
--- NOTE | 2019-03-18 10:35 | NUR ---
PATIENT HAS RETURNED FROM OR/PACU AT THIS TIME SHE IS SOMEWHAT CONFUSED AND DENIES PAIN OR DISCOMFORT REPEATEDLY. LEFT HIP HAS TWO SEPARATE DRESSINGS WITH SMALL AMOUNT OF DRAINAGE ON EACH. VS WNL. SHE IS ON HOME DOSE OF OXYGEN, 3L/MIN. WILL CONTINUE TO MONITOR.
--- NOTE | 2019-03-18 15:39 | NUR ---
REPORT GIVEN TO DUKE GILBERT. PATIENT CURRENTLY SLEEPING.
--- NOTE | 2019-03-18 15:43 | NUR ---
Plan: Possible SNF services? Patient lives at home with her daughter Karol as care [phone], and Patients EMR contact as well as patients other daughter Forrest. Patient Resides in [facility]. Assess: SW met with patient, and daughter Karol was at patients bedside. Patient gave permission for this SW to speak to her daughter, as she was drowsy and in the process of going to sleep. PAtients PCP is Dr. Almeida, and she does not have any follow up appointments. Patient gets her medications from [facility] with no complications. Patient had been independent in the past, however may need a walk aid due to recent surgery. Action: We discussed SNF with daughter and provided her with medicare.gov forms. We also discussed possible walk aids for Patient. No additional concerns identified. Patient was educated on community resources and supports.
--- NOTE | 2019-03-18 18:00 | NUR ---
Slept for several hours after pain med. States feels better. Small amount drainage on left hip dressings.
[2019-03-18 18:25] LABS: COLLECTION METHOD CLEAN CATCH
[2019-03-18 18:44] LABS: MUCOUS Present /lpf; PH 5 (5-8); SQUAMOUS EPITHELIAL None Seen /hpf; URINE APPEARANCE Clear; URINE BACTERIA None Seen /hpf; URINE BILIRUBIN Negative (NEGATIVE); URINE BLOOD 2+ (NEGATIVE); URINE COLOR Yellow; URINE GLUCOSE 1+ (NEGATIVE); URINE KETONE Negative (NEGATIVE); URINE LEUKOCYTE ESTERASE Negative (NEGATIVE); URINE NITRATE Negative (NEGATIVE); URINE PROTEIN(semi-quant) Negative (NEGATIVE); URINE RBC 20-50 /hpf; URINE UROBILINOGEN Negative (NEGATIVE)
--- NOTE | 2019-03-18 19:00 | NUR ---
REPORT RECEIVED FROM OFELIA, BEDSIDE ROUNDS COMPLETED AT THIS TIME. PT DENIES NEEDS. CALL LIGHT WITHIN REACH.
--- NOTE | 2019-03-18 21:45 | NUR ---
PT IS AWAKE, ALERT, OX4 BUT DOES SEEM TO HAVE SOME INTERMITTENT CONFUSION AT TIMES. PT REPORTS PAIN TO L HIP WITH MOVEMENT. PT GIVEN A PAIN PILL AT THIS TIME. IVF INFUSING TO L FA SITE WITHOUT ISSUES, WILL LOCK AFTER THIS BAG IS COMPLETE. PT IS TAKING PO WITHOUT PROBLEMS. CMS INTACT TO LLE. LS DIMINISHED THROUGHOUT. ENCOURAGED PT TO CDB AND USE OF IS. O2 ON AT 3L PER NC. PT DENIES SOB. MILLER CATH IN PLACE DRAINING CLEAR, VINCENT URINE. INCISION TO L HIP X2 WITH OCCLUSSIVE DRESSINGS IN PLACE WITH SMALL AMOUNT OF PINK DRAINAGE NOTED TO BOTH. ICE PACK REMOVED AT THIS TIME PER PT REQUEST. PT DENIES ANY OTHER NEEDS. CALL LIGHT WITHIN REACH.
[2019-03-19 00:44] VITALS: BP 141/56; PULSE 83; TEMP 98.1
[2019-03-19 04:40] VITALS: BP 144/46; PULSE 88; TEMP 97.5
[2019-03-19 06:36] LABS: BASO % 0.2 % (0.0-2.0); EOS # 0.1 (0.0-0.7); EOS % 0.8 % (0-4.0); GRAN # 6.6 (1.4-6.5); GRAN % 73.2 % (42.2-75.2); LYMPH # 1.2 (1.2-3.4); LYMPH % 13.3 % (20.0-51.0); MEAN CELL VOLUME 94 fl (80.0-100.0); MEAN CORPUSCULAR HGB CONC 33 g/dl (33.0-37.0); MEAN PLATELET VOLUME 9.1 fl (7.4-10.4); MONO # 1.1 (0.1-0.6); MONO % 11.7 % (1.7-9.3); PLATELET COUNT 220 K/mm3 (130-400); RED BLOOD COUNT 2.36 M/mm3 (4.10-5.30)
--- NOTE | 2019-03-19 06:39 | NUR ---
PT HAS RESTED SOME THROUGH THE NIGHT WITH OCC C/O OF INTERRUPTIONS BY NURSING STAFF. HAS REPORTED SOME INTERMITTENT PAIN TO THE L HIP, CONTROLLED WITH USE OF PO NORCO. IVF SL'D DURING THE NIGHT PT IS TOLERATING PO INTAKE WITHOUT ANY PROBLEMS. PT HAS SOME MINOR INTERMITTENT CONFUSION AT TIMES, EASILY REORIENTS. FREQUENT REPOSITIONING THROUGH THE NIGHT WITH PILLOWS PLACED FOR COMFORT. SCD'S AND TEDS ON BILAT. CALL LIGHT WITHIN REACH.
[2019-03-19 06:47] LABS: CALCIUM 8.2 mg/dL (8.4-10.2); CREATININE, serum 0.49 (0.52-1.25); POTASSIUM 4.2 mmol/L (3.4-5.0)
[2019-03-19 07:08] LABS: HEMOGLOBIN 7.4 g/dl (12.5-16.0); MEAN CORPUSCULAR HEMOGLOBIN 31 pg (27.0-31.0)
[2019-03-19 07:09] LABS: HEMATOCRIT 22.2 % (37.0-47.0)
[2019-03-19 08:26] VITALS: BP 145/46; PULSE 94; TEMP 97.6
--- NOTE | 2019-03-19 08:30 | NUR ---
Patient in bed resting. Alert and oriented x 3. Shift assessment complete. Patient states pain is tolerable this AM. Tedhose and SCDs to BLE. Edema noted to left lateral thigh. Gauze dressing to left thigh with drainage present. Assisted patient to order breakfast. Denies further needs at this time.
--- NOTE | 2019-03-19 10:35 | NUR ---
Patient sitting up in recliner, talking to herself. Attempted to reorient patient
--- NOTE | 2019-03-19 11:15 | NUR ---
First visit from the vision rehabilitation therapist. prayed with patient. No other needs right now.
[2019-03-19 11:36] VITALS: BP 134/41; PULSE 92; TEMP 98
--- NOTE | 2019-03-19 15:16 | NUR ---
HAKEEM presented the patient choice form to the patient. The patient's first choice is [facility] and second choice is [facility]. A copy was provided to the patient and the original was placed in the chart. HAKEEM contacted the patient's daughter, Karol and she was in agreeance. HAKEEM attempted to contact the patient's daughter Jaimee but could not leave a message. HAKEEM faxed referrals. SW awaiting response. HAKEEM will continue to follow.
[2019-03-19 16:00] VITALS: BP 147/48; PULSE 107; TEMP 98.2
--- NOTE | 2019-03-19 19:25 | NUR ---
Patient has done well throughout the day, Denies pain when sitting up in recliner. Family at bedside. Patient denies further needs at this time. Reported off to retail shift supervisor.
[2019-03-19 20:29] VITALS: BP 142/49; PULSE 104; TEMP 100.1
--- NOTE | 2019-03-19 23:27 | NUR ---
Lying back in recliner chair. Respirations even and unlabored. No signs or symptoms of discomfort noted.
[2019-03-20 00:11] VITALS: BP 149/59; PULSE 100; TEMP 100.6
[2019-03-20 03:35] VITALS: BP 146/57; PULSE 99; TEMP 99.8
--- NOTE | 2019-03-20 04:01 | NUR ---
Sitting up in chair with eyes closed. Respirations even and unlabored. Eyes open when name called out. Denies pain. Explains that she is comfortable in the chair to get rest and does not want in the bed. Patient denies further needs at this time.
--- NOTE | 2019-03-20 06:01 | NUR ---
Sitting up in chair, eyes open. Complains of pain in left hip. Dressing continues to have minimal drainage on gauze. Administered pain medication as directed. Patient denies further needs at this time.
[2019-03-20 06:23] LABS: MEAN CELL VOLUME 96 fl (80.0-100.0); MEAN CORPUSCULAR HGB CONC 33 g/dl (33.0-37.0); MEAN PLATELET VOLUME 9.4 fl (7.4-10.4); PLATELET COUNT 247 K/mm3 (130-400); REDCELL DISTRIBUTION WIDTH-CV 12.9 % (11.5-14.5)
[2019-03-20 06:33] LABS: CALCIUM 8.7 mg/dL (8.4-10.2); CREATININE, serum 0.51 (0.52-1.25); POTASSIUM 4.7 mmol/L (3.4-5.0)
[2019-03-20 06:41] LABS: HEMOGLOBIN 7.9 g/dl (12.5-16.0); MEAN CORPUSCULAR HEMOGLOBIN 32 pg (27.0-31.0)
--- NOTE | 2019-03-20 07:13 | NUR ---
Report provided to DUKE Gustafson.
[2019-03-20 07:15] VITALS: BP 136/48; PULSE 80; TEMP 97.9
--- NOTE | 2019-03-20 08:00 | NUR ---
SEE AM ASSESSMENT.
--- NOTE | 2019-03-20 08:27 | NUR ---
Ted from [facility] reports they [place] accept [place]. Cee from [facility] reports they can accept the [place]. SW will continue to follow.
[2019-03-20 08:34] LABS: BAND 3 % (0-10); LYMPHOCYTE 7 % (20.0-51.0); NEUTROPHILS 88 % (42.0-75.2); PLATELET ESTIMATE NORMAL (NORMAL)
[2019-03-20 08:35] LABS: HYPOCHROMIA 1+
[2019-03-20 11:00] VITALS: BP 126/40; PULSE 104; TEMP 98.4
[2019-03-20] MEDS ORDERED: NORCO 325 MG-51 TAB PO (13:57)
[2019-03-20] MEDS ORDERED: TYLENOL 325MG325 MG PO (13:58)
[2019-03-20] MEDS ORDERED: SENNA-S 50 MG-81 TAB PO (13:59)
[2019-03-20 15:05] VITALS: BP 126/40; PULSE 104; TEMP 98.4
--- NOTE | 2019-03-20 15:05 | NUR ---
REPORT CALLED TO DUKE LUCIANO AT [facility].
--- NOTE | 2019-03-20 15:07 | NUR ---
Initial visit; Patient thanked Flame Hardener for stopping in to introduce herself and to let patient know she is available to offer encouragement and prayer.
--- NOTE | 2019-03-20 15:43 | NUR ---
The patient is to discharge today, 03/20 to [facility] for a correction stay. HAKEEM presented the IM form to the patient, patient understood and signed the form. A copy was provided to the patient and original was placed in the chart. The patient is to be tranported at 1500. HAKEEM informed the patient, patient's nurse and patient's family, all were in agreeance. HAKEEM faxed discharge orders to Cee at [facility]. There are no additional needs at this time.
== END 2019-03-20 13:20 | DRG 481 ==
LOC: COL.ER 15:56 → SURG 16:20
PROVIDERS: Emergency Medicine; Internal Medicine Critical Care Medicine; Nurse Practitioner Family; Orthopaedic Surgery; ADMIT Student in an Organized Health Care Education/Training Program
PROC: 0QS736Z Reposition Left Upper Femur with Intramedullary Internal Fixation Device, Percutaneous Approach (ICD-10-PCS; principal; 2019-03-18 08:00)
DX: S72.142A Displaced intertrochanteric fracture of left femur, initial encounter for closed fracture (principal); C34.91 Malignant neoplasm of unspecified part of right bronchus or lung; I48.20 Chronic atrial fibrillation, unspecified; J96.11 Chronic respiratory failure with hypoxia; J44.9 Chronic obstructive pulmonary disease, unspecified; I10 Essential (primary) hypertension; I25.10 Atherosclerotic heart disease of native coronary artery without angina pectoris; E03.9 Hypothyroidism, unspecified; K21.9 Gastro-esophageal reflux disease without esophagitis; I25.2 Old myocardial infarction; W01.0XXA Fall on same level from slipping, tripping and stumbling without subsequent striking against object, initial encounter; Y93.89 Activity, other specified; D64.9 Anemia, unspecified; E11.42 Type 2 diabetes mellitus with diabetic polyneuropathy; M81.0 Age-related osteoporosis without current pathological fracture; M19.90 Unspecified osteoarthritis, unspecified site; J38.00 Paralysis of vocal cords and larynx, unspecified; D72.829 Elevated white blood cell count, unspecified; Z79.890 Hormone replacement therapy; Z79.4 Long term (current) use of insulin; Z79.82 Long term (current) use of aspirin; Z79.02 Long term (current) use of antithrombotics/antiplatelets; Z99.81 Dependence on supplemental oxygen; Z87.891 Personal history of nicotine dependence; Z90.710 Acquired absence of both cervix and uterus; Z88.0 Allergy status to penicillin
CPT/HCPCS: 99222; 99222-AI; 99223-AI; 99232-AI; 99233-AI; 99239; A9284; C1713; C1769; J0690; J1650; J1815; J2270; J2405; J2765; J2795; J3010; J7030; J7512

== ENCOUNTER 2019-03-26 20:21 | Inpatient (IN) | payer MEDICARE, BC ==
[~2019-03-26] VITALS: Ht 167.6 cm; Wt 72.8 kg
[~2019-03-26 20:21] MED LIST changes: +NORCO 325 MG-51 TAB PO; +SENNA-S 50 MG-81 TAB PO; +TYLENOL 325MG325 MG PO
[2019-03-26 21:36] LABS: MEAN CELL VOLUME 99 fl (80.0-100.0); MEAN CORPUSCULAR HGB CONC 32 g/dl (33.0-37.0); MEAN PLATELET VOLUME 8.7 fl (7.4-10.4); PLATELET COUNT 442 K/mm3 (130-400); RED BLOOD COUNT 2.27 M/mm3 (4.10-5.30); REDCELL DISTRIBUTION WIDTH-CV 15.2 % (11.5-14.5)
[2019-03-26 21:37] LABS: INR 0.9 (0.8-3.0); PROTHROMBIN TIME 10.5 SECONDS (9.7-12.8)
[2019-03-26 21:40] LABS: ALANINE AMINOTRANSFERASE 18 U/L (9-52); ALBUMIN 3.2 gm/dL (3.5-5.0); ALKALINE PHOSPHATASE 109 U/L (50-136); ANION GAP 8 mmol/L (7-16); AST,SGOT 31 U/L (15-37); BILIRUBIN,TOTAL 0.6 mg/dL (0.0-1.0); BLOOD UREA NITROGEN 15 mg/dL (7-17); CALCIUM 8.4 mg/dL (8.4-10.2); CARBON DIOXIDE 29 mmol/L (22-30); CHLORIDE 92 mmol/L (98-107); CREATININE, serum 0.58 (0.52-1.25); GLUCOSE 139 mg/dL (74-106); POTASSIUM 4.4 mmol/L (3.4-5.0); SODIUM 129 mmol/L (137-145); TOTAL PROTEIN 5.8 gm/dL (6.4-8.2)
[2019-03-26 21:43] LABS: HEMATOCRIT 22.4 % (37.0-47.0); HEMOGLOBIN 7.2 g/dl (12.5-16.0); MEAN CORPUSCULAR HEMOGLOBIN 32 pg (27.0-31.0)
[2019-03-26 21:51] LABS: TROPONIN-I < 0.012 ng/mL (0.000-0.035)
[2019-03-26 22:02] LABS: COLLECTION METHOD CATHETER
[2019-03-26 22:09] LABS: MUCOUS Present /lpf; PH 5 (5-8); SQUAMOUS EPITHELIAL None Seen /hpf; URINE APPEARANCE Clear; URINE BACTERIA Rare /hpf; URINE BILIRUBIN Negative (NEGATIVE); URINE BLOOD 1+ (NEGATIVE); URINE COLOR Yellow; URINE GLUCOSE Negative (NEGATIVE); URINE KETONE Negative (NEGATIVE); URINE LEUKOCYTE ESTERASE Negative (NEGATIVE); URINE NITRATE Negative (NEGATIVE); URINE PROTEIN(semi-quant) Negative (NEGATIVE); URINE RBC 0-2 /hpf; URINE UROBILINOGEN Negative (NEGATIVE)
[2019-03-26 22:15] LABS: BAND 7 % (0-10); EOSINOPHIL 3 % (0-4); LYMPHOCYTE 16 % (20.0-51.0); METAMYELOCYTE 1 % (0-0); MYELOCYTE 4 % (0-0); NEUTROPHILS 67 % (42.0-75.2)
[2019-03-26 22:23] LABS: PLATELET ESTIMATE INCREASED (NORMAL)
[2019-03-27] VITALS (17 sets, daily range): BP systolic 105–147; BP diastolic 44–79; PULSE 79–108; TEMP 97.4–99.1
[2019-03-27 03:57] LABS: MEAN CELL VOLUME 101 fl (80.0-100.0); MEAN CORPUSCULAR HGB CONC 32 g/dl (33.0-37.0); MEAN PLATELET VOLUME 8.6 fl (7.4-10.4); PLATELET COUNT 390 K/mm3 (130-400); RED BLOOD COUNT 2.11 M/mm3 (4.10-5.30); REDCELL DISTRIBUTION WIDTH-CV 15.1 % (11.5-14.5); RETIC # 0.15 M/mm3 (0.02-0.16); RETIC % 7.1 % (0.5-3.52)
[2019-03-27 03:58] LABS: HEMATOCRIT 21.2 % (37.0-47.0); HEMOGLOBIN 6.8 g/dl (12.5-16.0); MEAN CORPUSCULAR HEMOGLOBIN 32 pg (27.0-31.0)
[2019-03-27 04:05] LABS: CREATININE, serum 0.52 (0.52-1.25)
[2019-03-27 04:06] LABS: CHOLESTEROL RISK RATIO 4.4
[2019-03-27 05:02] LABS: POTASSIUM 4.2 mmol/L (3.4-5.0)
[2019-03-27 08:29] LABS: PATHOLOGY DIFF REVIEW OK
[2019-03-27 16:43] LABS: FOLATE (FOLIC ACID) 11.4 ng/mL (7.0-31.4)
[2019-03-28 00:07] VITALS: BP 125/84; PULSE 101; TEMP 99.2
[2019-03-28 03:39] VITALS: BP 139/81; PULSE 99; TEMP 98.6
[2019-03-28 06:58] LABS: MEAN CORPUSCULAR HGB CONC 34 g/dl (33.0-37.0); MEAN PLATELET VOLUME 8.7 fl (7.4-10.4); PLATELET COUNT 461 K/mm3 (130-400); RED BLOOD COUNT 3.41 M/mm3 (4.10-5.30); REDCELL DISTRIBUTION WIDTH-CV 15.5 % (11.5-14.5)
[2019-03-28 06:59] LABS: MEAN CELL VOLUME 94 fl (80.0-100.0); MEAN CORPUSCULAR HEMOGLOBIN 32 pg (27.0-31.0)
[2019-03-28 07:00] LABS: HEMOGLOBIN 10.8 g/dl (12.5-16.0)
[2019-03-28 07:27] VITALS: BP 145/62; PULSE 97; TEMP 98.6
[2019-03-28 07:41] LABS: BAND 20 % (0-10); EOSINOPHIL 1 % (0-4); LYMPHOCYTE 9 % (20.0-51.0); METAMYELOCYTE 5 % (0-0); MYELOCYTE 1 % (0-0); NEUTROPHILS 55 % (42.0-75.2); PLATELET ESTIMATE NORMAL (NORMAL)
[2019-03-28 08:45] LABS: CALCIUM 8.5 mg/dL (8.4-10.2); CREATININE, serum 0.45 (0.52-1.25); POTASSIUM 3.6 mmol/L (3.4-5.0)
[2019-03-28] MEDS ORDERED: NORCO 325 MG-51 TAB PO ×2 (10:40→16:08)
[2019-03-28] MEDS ORDERED: MIRALAX510G PO (10:41)
[2019-03-28 12:06] VITALS: BP 146/69; PULSE 112; TEMP 98.3
== END 2019-03-28 17:51 | disposition home health service (06) | DRG 812 ==
LOC: COL.ER 20:21 → SURG 22:50
PROVIDERS: Emergency Medicine; Nurse Practitioner Family; Student in an Organized Health Care Education/Training Program; ADMIT Student in an Organized Health Care Education/Training Program
DX: D64.9 Anemia, unspecified (principal); I48.20 Chronic atrial fibrillation, unspecified; E87.1 Hypo-osmolality and hyponatremia; E87.3 Alkalosis; I82.459 Acute embolism and thrombosis of unspecified peroneal vein; C34.91 Malignant neoplasm of unspecified part of right bronchus or lung; R41.82 Altered mental status, unspecified; T50.995A Adverse effect of other drugs, medicaments and biological substances, initial encounter; J44.9 Chronic obstructive pulmonary disease, unspecified; D72.825 Bandemia; E11.42 Type 2 diabetes mellitus with diabetic polyneuropathy; I10 Essential (primary) hypertension; R33.9 Retention of urine, unspecified; I25.10 Atherosclerotic heart disease of native coronary artery without angina pectoris; Z79.01 Long term (current) use of anticoagulants; Z79.82 Long term (current) use of aspirin; Z90.710 Acquired absence of both cervix and uterus; Z87.891 Personal history of nicotine dependence; Z88.0 Allergy status to penicillin; Z88.1 Allergy status to other antibiotic agents
CPT/HCPCS: 99233-AI; 99239; A4216; C9113; J0696; J1650; J1815; J1940; J7030; P9016

== ENCOUNTER 2019-04-11 11:33 | Emergency (ER) | payer MEDICARE, BC ==
[2009-05-26 03:04] VITALS: BP 149/73
[~2019-04-11] VITALS: Ht 165.1 cm; Wt 65.5 kg
[~2019-04-11 11:33] MED LIST changes: +MIRALAX510G PO
[2019-04-11 12:07] VITALS: TEMP 98.5
[2019-04-11] MEDS ORDERED: ZOFRAN ODT4 MG PO (14:31)
[2019-04-11] MEDS ORDERED: PULMICORT0.25 MG/2 IH (16:06)
[2019-04-11 17:40] VITALS: BP 147/42; PULSE 95
== END 2019-04-11 17:40 | disposition home or self-care (01) ==
LOC: COL.ER 11:33
DX: R11.2 Nausea with vomiting, unspecified (principal); R53.1 Weakness; I10 Essential (primary) hypertension; E11.9 Type 2 diabetes mellitus without complications; I25.10 Atherosclerotic heart disease of native coronary artery without angina pectoris; I48.91 Unspecified atrial fibrillation; Z85.118 Personal history of other malignant neoplasm of bronchus and lung; Z79.4 Long term (current) use of insulin; Z79.02 Long term (current) use of antithrombotics/antiplatelets; Z79.82 Long term (current) use of aspirin

== ENCOUNTER 2019-12-22 08:56 | Inpatient (IN) | payer MEDICARE, BC ==
[~2019-12-22] VITALS: Ht 165.1 cm; Wt 61.1 kg
[~2019-12-22 08:56] MED LIST changes: +SYNTHROID0.088 MG/T PO; +XARELTO20 MG PO
[2019-12-22 15:30] LABS: BASO # 0.1 (0.0-0.2); BASO % 0.4 % (0.0-2.0); EOS # 0.1 (0.0-0.7); EOS % 0.4 % (0-4.0); GRAN # 13.6 (1.4-6.5); GRAN % 87.4 % (42.2-75.2); HEMATOCRIT 37.2 % (37.0-47.0); HEMOGLOBIN 11.8 g/dl (12.5-16.0); LYMPH # 0.6 (1.2-3.4); LYMPH % 3.9 % (20.0-51.0); MEAN CELL VOLUME 92 fl (80.0-100.0); MEAN CORPUSCULAR HEMOGLOBIN 29 pg (27.0-31.0); MEAN CORPUSCULAR HGB CONC 32 g/dl (33.0-37.0); MEAN PLATELET VOLUME 8.3 fl (7.4-10.4); MONO # 1.1 (0.1-0.6); MONO % 7.2 % (1.7-9.3); PLATELET COUNT 455 K/mm3 (130-400); RED BLOOD COUNT 4.06 M/mm3 (4.10-5.30); REDCELL DISTRIBUTION WIDTH-CV 12.5 % (11.5-14.5)
[2019-12-22 15:43] LABS: ALBUMIN 3.7 gm/dL (3.5-5.0); BILIRUBIN,TOTAL 0.5 mg/dL (0.0-1.0); CALCIUM 9.2 mg/dL (8.4-10.2); CREATININE, serum 0.57 (0.52-1.25); POTASSIUM 4.3 mmol/L (3.4-5.0); TOTAL PROTEIN 7.3 gm/dL (6.4-8.2)
[2019-12-22 16:01] LABS: C-REACTIVE PROTEIN 24.5 mg/dL (0.0-0.9)
--- NOTE | 2019-12-22 20:00 | NUR ---
To room 326 from ED-ambulates with two assist. Admission assessment complete. Denies nausea/shortness of breath. States she does have abdominal pressure-rating it 2/10 on pain scale-denies need for intervention. Fentanyl patches x3-total of 150mcg-to back on admission. Oriented to room and policy. A&O-periods of confused conversation. Admission orders initiated. Spoke with daughters-Denisha and Karol-to complete med rec and history. SCDs applied. High fall risk-yellow gown/socks on as well as signage posted/bracelet. Respiratory here to do PRN Neb. Call light in reach/bed alarm on. Will monitor.
[2019-12-22 20:19] VITALS: BP 143/44; PULSE 81; TEMP 98.9
[2019-12-22 20:22] VITALS: BP 143/44; PULSE 81; TEMP 98.9
[2019-12-22] MEDS ORDERED: ZOLOFT 50MG50 MG PO (20:23)
[2019-12-22] MEDS ORDERED: PROTONIX 40MG T40 MG PO (20:23)
[2019-12-22] MEDS ORDERED: ROXICODONE15 MG PO (20:24)
[2019-12-22] MEDS ORDERED: FENTANYL 50MCG TD (20:26)
[2019-12-22] MEDS ORDERED: LOVENOX 6060 MG/0.6 SQ (20:27)
[2019-12-22] MEDS ORDERED: MAG-OX 400400 MG/TAB PO (20:27)
[2019-12-22 23:42] VITALS: BP 137/55; PULSE 83; TEMP 98.6
--- NOTE | 2019-12-23 | NUR ---
Bedside glucose 174. VS stable. States she has no urge to have a bowel movement or void. States she voided in the ED every time she sat on commode. Will bladder scan if no void in next few hours.
[2019-12-23 03:54] VITALS: BP 160/56; PULSE 81; TEMP 97.5
--- NOTE | 2019-12-23 04:35 | NUR ---
Assisted up to bathroom at this time. Attempt made to collect needed UA however hat was missed. Denies shortness of breath/pain/nausea. IV to left wrist with NS@100ml/hr infusing without difficulty. O2@4L/NC. Has remained NPO except ice chips. VS have remained stable. Denies needs. Call light in reach/bed alarm on. Will monitor.
--- NOTE | 2019-12-23 06:40 | NUR ---
appears to be dozing, bedside shift report received from DUKE Raymond
[2019-12-23 06:48] LABS: BASO % 0.2 % (0.0-2.0); EOS % 0.1 % (0-4.0); GRAN # 11.7 (1.4-6.5); GRAN % 89.1 % (42.2-75.2); HEMOGLOBIN 10.8 g/dl (12.5-16.0); LYMPH # 0.6 (1.2-3.4); LYMPH % 4.3 % (20.0-51.0); MEAN CELL VOLUME 92 fl (80.0-100.0); MEAN CORPUSCULAR HEMOGLOBIN 29 pg (27.0-31.0); MEAN CORPUSCULAR HGB CONC 31 g/dl (33.0-37.0); MEAN PLATELET VOLUME 8.8 fl (7.4-10.4); MONO # 0.7 (0.1-0.6); MONO % 5.2 % (1.7-9.3); PLATELET COUNT 480 K/mm3 (130-400); RED BLOOD COUNT 3.75 M/mm3 (4.10-5.30); REDCELL DISTRIBUTION WIDTH-CV 12.4 % (11.5-14.5)
[2019-12-23 07:03] LABS: ALBUMIN 3.3 gm/dL (3.5-5.0); BILIRUBIN,TOTAL 0.4 mg/dL (0.0-1.0); CALCIUM 8.3 mg/dL (8.4-10.2); CREATININE, serum 0.5 (0.52-1.25); POTASSIUM 4.2 mmol/L (3.4-5.0); TOTAL PROTEIN 6.5 gm/dL (6.4-8.2)
[2019-12-23 07:16] LABS: HEMATOCRIT 34.6 % (37.0-47.0)
--- NOTE | 2019-12-23 08:00 | NUR ---
assisted up to bedside commode to try and void and have bowel movement, has some left lower abdominal quadran pain and that she feels "gurgling" in her belly, will continue to try
[2019-12-23 08:11] VITALS: BP 140/50; PULSE 83; TEMP 97.9
--- NOTE | 2019-12-23 08:34 | NUR ---
was unable to void or have bowel movement, did pass dulcolax suppository, full assessment completed, see interventions for further info, assisted back to bed
--- NOTE | 2019-12-23 11:10 | NUR ---
Dr Dawkins in to see patient, will start clear liquids
--- NOTE | 2019-12-23 11:23 | NUR ---
SW met with patient to complete intake and discuss discharge plan. Patient provides that she lives in [place] with her daughter Karol [phone]. Patient provides that she utilizes a walker at home and is independent with ADL's. Patient provides that her PCP is Dr. Lexi Duffy, obtains her medications from [facility], and states that she is able to afford her medications. Patient provides that her DPOA-HC are her children and that the she has the documentation, but it unsure where it is at this time. Patient states that she plans to go back to her home in [place] upon discharge, and has no questions or concerns in regards to her discharge at this time. SW will continue to follow.
--- NOTE | 2019-12-23 11:59 | NUR ---
given dulcalax supp and miralax as ordered, tolerates well, denies other needs
[2019-12-23 12:14] VITALS: BP 165/59; PULSE 73; TEMP 98.1
--- NOTE | 2019-12-23 12:25 | NUR ---
provided shayy for clear liquids
--- NOTE | 2019-12-23 12:42 | NUR ---
patient has not voided since this nurse resumed care, bladder scan completed and reveals approx 440ml urine in bladder, assisted up to bedside commode to have her try and void
--- NOTE | 2019-12-23 12:52 | NUR ---
was able to void 600ml clear jerica urine, UA to lab
[2019-12-23 12:53] LABS: COLLECTION METHOD CLEAN CATCH
--- NOTE | 2019-12-23 13:09 | NUR ---
informed STEPHEN Pink that Dr Dawkins OK with her taking PO meds, I spoke with [facility] pharmacy and patient has not had diltiazem filled since a 30 day was filled in Mar 2019,
[2019-12-23 13:49] LABS: MUCOUS Present /lpf; PH 6 (5-8); SQUAMOUS EPITHELIAL 0-2 /hpf; URINE APPEARANCE Clear; URINE BACTERIA None Seen /hpf; URINE BILIRUBIN Negative (NEGATIVE); URINE BLOOD 2+ (NEGATIVE); URINE COLOR Yellow; URINE GLUCOSE Negative (NEGATIVE); URINE KETONE 2+ (NEGATIVE); URINE LEUKOCYTE ESTERASE Negative (NEGATIVE); URINE NITRATE Negative (NEGATIVE); URINE PROTEIN(semi-quant) 2+ (NEGATIVE); URINE RBC 20-50 /hpf; URINE UROBILINOGEN Negative (NEGATIVE)
--- NOTE | 2019-12-23 13:50 | NUR ---
resting in bed talking on phone with her daughter,
[2019-12-23 16:56] VITALS: BP 184/69; PULSE 78; TEMP 98.6
--- NOTE | 2019-12-23 17:46 | NUR ---
started to give dulcolax suppository and patient had been incontinent of small amount loose brown stool, assisted up to bedside to try to have another bowel movement
--- NOTE | 2019-12-23 18:08 | NUR ---
had large loose bowel movement, assisted back to bed
--- NOTE | 2019-12-23 18:49 | NUR ---
bedside shift report given to DUKE Raymond
--- NOTE | 2019-12-23 20:00 | NUR ---
Report received, assumed care for maintenance technician 2nd shift. Assessment complete. A&Ox3-periods of confused conversation. VS stable. Denies shortness of breath/nausea. + flatus. Did have a loose BM earlier today. Rating pain 2/10 on pain scale to abdomen-described as constant pressure with occasional cramping-denies need for intervention. O2@4L/NC. IV to left forearm with NS@100mls/hr. Plan of care discussed for this shift to include stool softners and pain control. Verbalizes understanding. Call light in reach. Will monitor.
[2019-12-23 20:13] VITALS: BP 152/53; PULSE 78; TEMP 98.1
[2019-12-23 23:56] VITALS: BP 158/61; PULSE 77; TEMP 97.9
[2019-12-24 04:43] VITALS: BP 159/62; PULSE 75; TEMP 98.5
[2019-12-24 06:44] LABS: CREATININE, serum 0.36 (0.52-1.25); POTASSIUM 3.7 mmol/L (3.4-5.0)
--- NOTE | 2019-12-24 06:55 | NUR ---
Rested well this shift. Has tolerated clear liquids. +BM-large loose on day shift yesterday. No pain meds given. Denied shortness of breath/nausea. Bed alarm on/call light in reach will monitor.
[2019-12-24 06:58] LABS: BASO # 0.1 (0.0-0.2); BASO % 0.6 % (0.0-2.0); EOS # 0.3 (0.0-0.7); EOS % 2.6 % (0-4.0); GRAN # 10.2 (1.4-6.5); GRAN % 80.9 % (42.2-75.2); HEMOGLOBIN 11.8 g/dl (12.5-16.0); LYMPH % 7.7 % (20.0-51.0); MEAN CELL VOLUME 90 fl (80.0-100.0); MEAN CORPUSCULAR HEMOGLOBIN 29 pg (27.0-31.0); MEAN CORPUSCULAR HGB CONC 33 g/dl (33.0-37.0); MONO # 0.9 (0.1-0.6); MONO % 7.5 % (1.7-9.3); RED BLOOD COUNT 4.04 M/mm3 (4.10-5.30); REDCELL DISTRIBUTION WIDTH-CV 12.4 % (11.5-14.5)
[2019-12-24 07:07] LABS: HEMATOCRIT 36.3 % (37.0-47.0); PLATELET COUNT 602 K/mm3 (130-400)
[2019-12-24 07:12] VITALS: BP 150/54; PULSE 78; TEMP 98.1
--- NOTE | 2019-12-24 11:22 | NUR ---
I met with patient this morning. She had just finished eating her clear liquid tray and was resting. She reports that her favorite liquid is water with ice chip and this was renewed to her bedside. She did confirm that she has been living with her daughter Karol and is very happy there. She goes on to say that she is wanting to live for as long as she can but knows she has cancer. She is not wanting active treatment for her cancer. I just want to enjoy my life and I do at Karol's house. That is where she tells me she will go when she leaves the hospital. [facility] when she signed herself out because she thought they were trying to "kill her". Tomeka and I spoke by phone with daughter Karol Guallpa by phone. She did affirm that her mother could stay with her and that wants her mother to be able to live for as long as she can. No more hospice services for her Mom. Denisha Henriquez RN is also her daughter and a DPOA-HC along with Karol and Eyal. Jaimee believes her mother needs to be kept comfortable and that there is little more that can be done. If a palliative procedure was suggested, she and her sister would differ on what should be done. Jaimee then states that her sister Karol would have the final word, not her--"I am not willing to fight with her about this". Dr Murray was also present when we talked with Jaimee and is aware of what she reported. Dr Russell has been consulted and will see the patient later today. We will revisit this discussion tomorrow. Pt has had a BM and is taking po fair.
[2019-12-24 11:57] VITALS: BP 168/63; PULSE 81; TEMP 97.8
--- NOTE | 2019-12-24 12:43 | NUR ---
Hot Strip Mill Inspector collaborated with DUKE Rivers about palliative consult. Per Tita, patient is not receiving any active chemotherapy treatments. Tita advised that patient is also not interested in Hospice Services at this time. Patient reported to Tita that she plans to return to her daughter, Karol's home at discharge as she is happy there. Patient was at [facility] from 03/31/19-05/03/19 but then checked herself out. HAKEEM and Tita called patient's daughter, Karol who is in agreement with discharge plan back to her home. Karol advised that she and her sister, Denisha have different opinions about patient's plan of care. Karol reports she wants her mom to live as long as possible and that her sister Denisha is more "practical". Patient's daughter, Denisha spoke with Tita and Hospitalist and advised that she does not want to fight with her sister over this. Denisha feels that focus should be on patient's comfort but deferred to her sister, Karol to make decisions. GI consult ordered. Karol had advised during phone call that patient receives Home Health services from [facility] in [place]. HAKEEM contacted Olivia at [facility] and faxed updates. Olivia reports patient has jail services. Olivia states that patient has reported to them as well that she is not interested in hospice services. HAKEEM will continue to follow.
[2019-12-24 15:06] VITALS: BP 152/60; PULSE 87; TEMP 98
--- NOTE | 2019-12-24 15:17 | NUR ---
Dr. Dawkins in to see patient
--- NOTE | 2019-12-24 15:19 | NUR ---
Patient up to commode, x 1 assist.
--- NOTE | 2019-12-24 17:43 | NUR ---
Patient sitting up on edge of bed eating supper
--- NOTE | 2019-12-24 18:32 | NUR ---
Patient has done well throughout the day. Denies pain through the day. Has been up to comode with stand by assistance, had x1 BM today. Tolerating diet without difficulties, encouraged patient to increase intake. Denies further needs at this time. Daughter Denisha in to see patient throughout the day
--- NOTE | 2019-12-24 18:35 | NUR ---
Will report off to evening or night nurse supervisor.
[2019-12-24 20:01] VITALS: BP 145/56; PULSE 81; TEMP 98
--- NOTE | 2019-12-24 21:30 | NUR ---
Pt. sitting up in bed at this time. Pt. is A&OX3, assessment complete. IV to rt. wrist patent, IV fluids infusing per orders. Pt. denies pain or other needs, call light within reach.
[2019-12-25 00:11] VITALS: BP 156/6; BP 156/61; PULSE 79; TEMP 97.4
[2019-12-25 03:46] VITALS: BP 157/60; PULSE 75; TEMP 97
[2019-12-25 06:42] LABS: BASO # 0.1 (0.0-0.2); BASO % 0.5 % (0.0-2.0); EOS # 0.4 (0.0-0.7); EOS % 2.8 % (0-4.0); GRAN # 10.2 (1.4-6.5); GRAN % 81.2 % (42.2-75.2); HEMOGLOBIN 11.5 g/dl (12.5-16.0); LYMPH # 0.9 (1.2-3.4); LYMPH % 7.4 % (20.0-51.0); MEAN CELL VOLUME 89 fl (80.0-100.0); MEAN CORPUSCULAR HEMOGLOBIN 29 pg (27.0-31.0); MEAN CORPUSCULAR HGB CONC 33 g/dl (33.0-37.0); MEAN PLATELET VOLUME 8.7 fl (7.4-10.4); MONO % 7.5 % (1.7-9.3); RED BLOOD COUNT 3.95 M/mm3 (4.10-5.30); REDCELL DISTRIBUTION WIDTH-CV 12.3 % (11.5-14.5)
[2019-12-25 06:44] LABS: HEMATOCRIT 35.3 % (37.0-47.0); PLATELET COUNT 459 K/mm3 (130-400)
[2019-12-25 06:57] LABS: CALCIUM 7.7 mg/dL (8.4-10.2); CREATININE, serum 0.35 (0.52-1.25); MAGNESIUM 1.8 mg/dL (1.6-2.3); POTASSIUM 3.1 mmol/L (3.4-5.0)
[2019-12-25 07:47] VITALS: BP 168/52; PULSE 86; TEMP 97.5
--- NOTE | 2019-12-25 08:30 | NUR ---
Patient sitting up on edge of bed. Alert and oriented x3, daughter states she is typically confused in the AM and hallucinates at night. States pain 8/10 to abdomen, medications given at this time. Eccymosis noted to left forarm. IV to right wrist without complications, fluids infusing per orders. Denies further needs at this time. Will continue to monitor.
--- NOTE | 2019-12-25 09:00 | NUR ---
Patient now complains of cholic type pain to abdomen, hot pack provided to patient.
--- NOTE | 2019-12-25 09:21 | NUR ---
Pt has declined any further procedures at this time after speaking with Dr Russell. She was just medicated for pain per her nurse Chante and appears to be sleeping now. Dr Murray advises that she is now moving her bowels and is able to be discharged today. She currently has home health nurse visiting weekly and family is comfortable with this arrangement. Pt was clear yesterday that she does not want to start hospice at this time and is happy with staying at her daughter Karol's house with either Karol or Jaimee there with her. I am not going to awaken patient at this time. She has seen her daughter Jaimee and talked with her and with Karol by phone.
--- NOTE | 2019-12-25 10:56 | NUR ---
Speach therapy in to see patient.
--- NOTE | 2019-12-25 11:03 | NUR ---
Patient sleeping. Will continue to monitor.
[2019-12-25 11:21] VITALS: BP 140/70; PULSE 92; TEMP 97.8
--- NOTE | 2019-12-25 11:42 | NUR ---
XRAY IN TO SEE PATIENT.
[2019-12-25 15:17] VITALS: BP 155/65; PULSE 83; TEMP 99.1
[2019-12-25] MEDS ORDERED: FLAGYL500 MG PO (16:01)
[2019-12-25] MEDS ORDERED: LEVAQUIN 750MG750 M1 PO (16:01)
--- NOTE | 2019-12-25 16:30 | NUR ---
Dial Equipment Engineer notified that patient to discharge this afternoon. SW contacted patient's daughter, Karol who advised she was aware of discharge and that her sister, Denisha will merchandise pickup/receiving associate patient and bring her to Karol's home this afternoon. Karol does not have any questions or concerns at this time. SW met with patient and read IM form aloud. Patient verbalized understanding and gave SW permission to sign on her behalf. SW placed form in chart and provided copy to patient. [facility] and [facility]. No additional needs at this time.
--- NOTE | 2019-12-25 17:00 | NUR ---
Discharge education provided to patient and daughter, Jaimee. Educated on when to call provider and scheduling follow up appointment. Patient has had BM x 2 today and has been up to commode thrughout the day with stand by assist. All questions answered. No further needs at this time. INT to right forarm discontinued, catheter tip intact. Patient out by wheelchair with family and surgical staff.
== END 2019-12-25 17:20 | disposition home or self-care (01) | DRG 389 ==
LOC: COL.ER 08:56 → SURG 18:24
PROVIDERS: Family Medicine; Hospitalist; Physician Assistant; ADMIT Family Medicine
DX: K56.690 Other partial intestinal obstruction (principal); C34.90 Malignant neoplasm of unspecified part of unspecified bronchus or lung; E87.1 Hypo-osmolality and hyponatremia; C79.89 Secondary malignant neoplasm of other specified sites; K52.9 Noninfective gastroenteritis and colitis, unspecified; Z66 Do not resuscitate; D53.9 Nutritional anemia, unspecified; D47.3 Essential (hemorrhagic) thrombocythemia; I25.10 Atherosclerotic heart disease of native coronary artery without angina pectoris; J44.9 Chronic obstructive pulmonary disease, unspecified; E03.9 Hypothyroidism, unspecified; I10 Essential (primary) hypertension; E11.42 Type 2 diabetes mellitus with diabetic polyneuropathy; I48.0 Paroxysmal atrial fibrillation; G89.3 Neoplasm related pain (acute) (chronic); K59.00 Constipation, unspecified; Z99.81 Dependence on supplemental oxygen; Z86.718 Personal history of other venous thrombosis and embolism; Z79.84 Long term (current) use of oral hypoglycemic drugs; Z79.01 Long term (current) use of anticoagulants; Z87.891 Personal history of nicotine dependence; Z88.0 Allergy status to penicillin; Z88.1 Allergy status to other antibiotic agents
CPT/HCPCS: 99222-AI; 99232-AI; J1200; J1650; J1956; J2212; J2930; J7030; Q9967